=== PATIENT | female | born 1960 | race Caucasian/White ===

== ENCOUNTER 2017-07-01 12:38 | Observation (INO) | payer OTHER ==
[~2017-07-01] VITALS: Ht 157.5 cm; Wt 74.0 kg
[2017-07-01 13:18] VITALS: BP 157/75; PULSE 60; RESP 17; TEMP 98.7; O2SAT 98
[2017-07-01 14:02] LABS: AUTOMATED NEUTROPHIL # 4.7 TH/MM3 (1.8-7.7); BASOPHIL % 0.3 % (0.0-2.0); EOSINOPHIL # 0.2 TH/MM3 (0-0.4); EOSINOPHIL % 2.2 % (0.0-4.0); HEMATOCRIT 38.1 % (35.0-46.0); HEMO FLAGS DIFF FINAL; LYMPH % 22.7 % (9.0-44.0); LYMPHOCYTE # 1.6 TH/MM3 (1.0-4.8); MEAN CELL VOLUME 88.3 FL (80.0-100.0); MEAN CORPUSCULAR HEMOGLOBIN 29.9 PG (27.0-34.0); MEAN CORPUSCULAR HGB CONC 33.9 % (32.0-36.0); MONO % 7.9 % (0.0-8.0); NEUT % 66.9 % (16.0-70.0); PLATELET COUNT 342 TH/MM3 (150-450); RED BLOOD COUNT 4.31 MIL/MM3 (4.00-5.30); RED CELL DISTRIBUTION WIDTH 13.8 % (11.6-17.2)
[2017-07-01 14:10] LABS: APTT (PATIENT) 27.4 SEC (24.3-30.1); PROTHROMBIN TIME - PATIENT 10.6 SEC (9.8-11.6)
--- NOTE | 2017-07-01 14:18 | RADRPT ---
EXAM DATE/TIME: 07/01/2017 13:59 [facility] COMPARISON: No previous studies available for comparison. INDICATIONS : Mid sternal chest pains ridiating into left arm. MEDICAL HISTORY : None. SURGICAL HISTORY : None. ENCOUNTER: Initial ACUITY: 1 day PAIN SCORE: 7/10 LOCATION: Left chest FINDINGS: A single view of the chest demonstrates the lungs to be symmetrically aerated without evidence of mas s, infiltrate or effusion. The cardiomediastinal contours are unremarkable. Osseous structures are intact. CONCLUSION: 1. No acute cardiopulmonary findings. Je Traylor MD on July 01, 2017 at 14:14 Board Certified Radiologist. This report was verified electronically.
[2017-07-01 14:25] LABS: ANION GAP 6 MEQ/L (5-15); BLOOD UREA NITROGEN 17 MG/DL (7-18); CHLORIDE 105 MEQ/L (98-107); GLOMERULAR FILTRATION RATE 82 ML/MIN (>89); MAGNESIUM 2.3 MG/DL (1.5-2.5); POTASSIUM 3.5 MEQ/L (3.5-5.1); SODIUM (NA) 139 MEQ/L (136-145)
[2017-07-01 14:35] LABS: CREATINE KINASE 73 U/L (26-192)
[2017-07-01] MEDS ORDERED: ACETAMINOPHEN 325 MG TAB PO ONE (14:45)
[2017-07-01] MEDS ORDERED: ATEN100T PO (14:52)
--- NOTE | 2017-07-01 15:05 | PD ---
HPI Chief Complaint: Cardiac Complaint Time Seen by Provider: 13:29 Travel History International Travel<30 days: No Contact w/Intl Traveler<30days: No Traveled to known affect area: No History of Present Illness HPI 57-year-old female that presents to the ED for evaluation of left-sided chest pressure. Per patient she's had this done for what this morning. Per patient she woke up with a headache and noticed that her blood pressure was really high. She took an atenolol to help with the discomfort which did help bring the blood pressure down as well as the headache. Per patient she doesn't actually take the atenolol herself and is from someone else. She has no history of high blood pressure but her blood pressure usually has to be low. She states that she has a strong family history of heart disease. Per patient she called the ambulance because the pain got progressively worse even after taking a second atenolol. She did not take any other pain medication. She was given nitroglycerin as well as aspirin by ambulance. This made the pain and the blood pressure better. Per patient she is for the most problem is chest pain-free. She states that her pain right now is 1 out of 10. She states that the pain stays on the chest on the left side. She denies any history of heart disease on herself. She is any history of cholesterol or diabetes. She has no allergies to medication. No other medical issues at this time. PFSH Past Medical History Hypertension: Yes ?: Not Social History Alcohol Use: No Tobacco Use: No Substance Use: No Allergies-Medications (Allergen,Severity, Reaction): Coded Allergies: No Known Allergies (Unverified , 07/01/17) Reported Meds & Prescriptions Reported Meds & Active Scripts Active Reported Atenolol 100 Mg Tab 100 Mg PO BID Review of Systems Except as stated in HPI: all other systems reviewed are Neg Physical Exam Narrative GENERAL: SKIN: Warm and dry. HEAD: Atraumatic. Normocephalic. EYES: Pupils equal and round. No scleral icterus. No injection or drainage. ENT: No nasal bleeding or discharge. Mucous membranes pink and moist. Tongue is midline. No uvula deviation. NECK: Trachea midline. No JVD. CARDIOVASCULAR: Regular rate and rhythm. No murmurs, S3, S4. No reproducible chest pain on the chest. RESPIRATORY: No accessory muscle use. Clear to auscultation. Breath sounds equal bilaterally. GASTROINTESTINAL: Abdomen soft, non-tender, nondistended. Hepatic and splenic margins not palpable. MUSCULOSKELETAL: Extremities without clubbing, cyanosis, or edema. No obvious deformities. Full range of motion of the upper and lower extremities bilaterally. 2+ pulses bilaterally. NEUROLOGICAL: Awake and alert. No obvious cranial nerve deficits. Motor grossly within normal limits. Five out of 5 muscle strength in the arms and legs. Normal speech. PSYCHIATRIC: Appropriate mood and affect; insight and judgment normal. Data Data Last Documented VS Vital Signs Date Time Temp Pulse Resp B/P (MAP) Pulse Ox O2 Delivery O2 Flow Rate FiO2 07/01/17 13:42 59 07/01/17 13:41 99 Room Air 07/01/17 13:18 98.7 17 157/75 (102) Orders Orders Electrocardiogram (07/01/17 13:18) Basic Metabolic Panel (Bmp) (07/01/17 13:18) Ckmb (Isoenzyme) Profile (07/01/17 13:18) Complete Blood Count With Diff (07/01/17 13:18) Magnesium (Mg) (07/01/17 13:18) Prothrombin Time / Inr (Pt) (07/01/17 13:18) Act Partial Throm Time (Ptt) (07/01/17 13:18) Troponin I (07/01/17 13:18) Lipase (07/01/17 13:18) Chest, Single Ap (07/01/17 13:18) Ecg Monitoring (07/01/17 13:18) Bilateral Bp Monitoring (07/01/17 13:18) Iv Access Insert/Monitor (07/01/17 13:18) Oximetry (07/01/17 13:18) Oxygen Administration (07/01/17 13:18) Acetaminophen (Tylenol) (07/01/17 14:45) Admit Order (Ed Use Only) (07/01/17 14:45) Labs Laboratory Tests Test 07/01/17 13:40 White Blood Count 7.0 TH/MM3 Red Blood Count 4.31 MIL/MM3 Hemoglobin 12.9 GM/DL Hematocrit 38.1 % Mean Corpuscular Volume 88.3 FL Mean Corpuscular Hemoglobin 29.9 PG Mean Corpuscular Hemoglobin Concent 33.9 % Red Cell Distribution Width 13.8 % Platelet Count 342 TH/MM3 Mean Platelet Volume 7.0 FL Neutrophils (%) (Auto) 66.9 % Lymphocytes (%) (Auto) 22.7 % Monocytes (%) (Auto) 7.9 % Eosinophils (%) (Auto) 2.2 % Basophils (%) (Auto) 0.3 % Neutrophils # (Auto) 4.7 TH/MM3 Lymphocytes # (Auto) 1.6 TH/MM3 Monocytes # (Auto) 0.6 TH/MM3 Eosinophils # (Auto) 0.2 TH/MM3 Basophils # (Auto) 0.0 TH/MM3 CBC Comment DIFF FINAL Differential Comment Prothrombin Time 10.6 SEC Prothromb Time International Ratio 1.0 RATIO Activated Partial Thromboplast Time 27.4 SEC Blood Urea Nitrogen 17 MG/DL Creatinine 0.73 MG/DL Random Glucose 81 MG/DL Calcium Level 9.1 MG/DL Magnesium Level 2.3 MG/DL Sodium Level 139 MEQ/L Potassium Level 3.5 MEQ/L Chloride Level 105 MEQ/L Carbon Dioxide Level 28.0 MEQ/L Anion Gap 6 MEQ/L Estimat Glomerular Filtration Rate 82 ML/MIN Total Creatine Kinase 73 U/L Troponin I LESS THAN 0.02 NG/ML Lipase 183 U/L MDM Medical Decision Making Medical Screen Exam Complete: Yes Emergency Medical Condition: Yes Medical Record Reviewed: Yes Interpretation(s) EKG shows sinus rhythm with no sign of acute ischemia or arrhythmia. Read by me and attending. CK-MB and troponin negative for acute disease. Last Impressions Chest X-Ray 07/01/17 1318 Signed Impressions: Service Date/Time: Saturday, July 01, 2017 13:59 - CONCLUSION: 1. No acute cardiopulmonary findings. Je Traylor MD CBC & BMP Diagram 07/01/17 13:40 Calcium Level 9.1, Magnesium Level 2.3 Differential Diagnosis Chest pain versus atypical chest pain versus ACS versus anxiety Narrative Course 57-year-old female that presents to the ED for evaluation of chest pain. Patient was properly examined and was found to have signs and symptoms consistent with appears to be chest pain. Concern for ACS. Patient has risk factors including high blood pressure, family history and age. Labs and imaging were done and were essentially unremarkable of this time. Reassuring but I do recommend admission to chest pain center as patient herself has never had a stress test and there is definite concern for ACS. She is in agreement with this plan. Patient was admitted to the chest pain center. Diagnosis Primary Impression: Chest pain in adult Admitting Information Admitting Physician Requests: Observation Albino Valentine Jul 01, 2017 15:05
[2017-07-01] MEDS ORDERED: ALPRAZolam 0.25 MG TAB PO PRN (16:45)
[2017-07-01] MEDS ORDERED: ONDANSETRON HCL 4 MG/2 ML VIAL IV PRN (16:45)
[2017-07-01] MEDS ORDERED: ACETAMINOPHEN 500 MG CPLT PO PRN (16:45)
[2017-07-01] MEDS ORDERED: SODIUM CHLORIDE 0.9% FLUSH 10 ML FLUSH IV FLUSH PRN (16:45)
[2017-07-01] MEDS ORDERED: ACETAMINOPHEN/HYDROcodone 325 MG/7.5 MG TAB PO PRN (16:45)
[2017-07-01 16:46] VITALS: BP 125/90; PULSE 61; RESP 18; TEMP 98.3; O2SAT 100
--- NOTE | 2017-07-01 16:50 | HHI.HP ---
HPI Primary Care Physician Non-Staff Chief Complaint Chest pain History of Present Illness This is a 57-year-old [place]ian-speaking female that presents to ED via private vehicle with her son with a complaint of left upper chest pressure that began last evening as well as having a headache. She has requested that her son did the translating for her. The discomfort persisted throughout the evening and into today. Discomfort still there but worsened with any type of movement of the left arm. She felt nauseous. No shortness of breath or diaphoresis. She checked her blood pressure when the symptoms began last evening and her blood pressure was 160/108. She states she has a prescription for atenolol that was prescribed to her for hypertension and arrhythmias. States that her heart rate is fast at times. However patient states she'll take the medication when she thinks it as needed. Admits to not checking her blood pressure on a regular basis nor taken the medication regular basis. About 10:30 this morning the chest pressure still present so she checked her blood pressure again and it was 161/107. She took another atenolol and her son brought her to the ED. Denies recent illness. Denies fevers or chills. Review of Systems General: Patient denies fevers, chills recent, and recent travel HEENT: Plain the frontal headache that has resolved. Patient denies sore throat , difficulty swallowing. Cardiovascular: Has the chest discomfort as mentioned above. Denies sensation of heart beating rapidly or irregularly. No syncope. Denies diaphoresis. Respiratory: Denies shortness of breath or inspirational chest discomfort. Denies coughing wheezing or hemoptysis. GI: She felt nauseous. Patient denies vomiting, diarrhea, abdominal pain, bloody stools. Musculoskeletal: Patient denies joint pain or edema. Denies calf pain or edema. Neurovascular: Patient denies numbness, tingling, weakness in extremities. Complains of frontal headache that is resolved. Endocrine: Denies polyuria and polydipsia. Hematologic: Denies easy bruising. Skin: Denies rash or itching. Past Family Social History Allergies: Coded Allergies: No Known Allergies (Unverified , 07/01/17) Past Medical History Hypertension and some type of arrhythmia that they describe is tachycardic. Denies hyperlipidemia diabetes or CAD. Past Surgical History Noncontributory. Reported Medications Reported Meds & Active Scripts Active Reported Atenolol 100 Mg Tab 100 Mg PO BID Active Ordered Medications Current Medications Medications (Trade) Dose Ordered Sig/Lucy Route Start Time Stop Time Status Last Admin (NS Flush) 2 ml UNSCH PRN IVF 07/01/17 16:45 UNV (NS Flush) 2 ml BID IVF 07/01/17 21:00 UNV (Tylenol) 500 mg Q4H PRN PO 07/01/17 16:45 UNV ([place] 7.5-325 Mg) 1 tab Q4H PRN PO 07/01/17 16:45 UNV (Zofran Inj) 4 mg Q6H PRN IV 07/01/17 16:45 UNV (Protonix) 40 mg DAILY PO 07/01/17 16:45 UNV (Aspirin) 325 mg DAILY PO 07/02/17 09:00 UNV (Xanax) 0.25 mg Q8H PRN PO 07/01/17 16:45 UNV Family History States her mother at age 77 of a myocardial infarction. Not aware of cardiac issues prior to her passing. Social History Lifetime nonsmoker. Denies alcohol or illicit drugs. She is . Physical Exam Vital Signs Vital Signs Date Time Temp Pulse Resp B/P (MAP) Pulse Ox O2 Delivery O2 Flow Rate FiO2 07/01/17 15:58 18 07/01/17 13:42 59 07/01/17 13:41 99 Room Air 07/01/17 13:18 98.7 60 17 157/75 (102) 98 Physical Exam GENERAL: This is a well-nourished, well-developed patient, in no apparent distress. Patient speaks in clear complete sentences. Patient is pleasant. HEENT: Head is atraumatic and normocephalic. Neck is supple without lymphadenopathy and trachea is midline. No JVD or carotid bruits. CARDIOVASCULAR: Regular rate and rhythm without murmurs, gallops, or rubs. RESPIRATORY: Clear to auscultation. Breath sounds equal bilaterally. No wheezes , rales, or rhonchi. Left upper chest wall is tender. This also is worsened with movement of the arm across her chest. No use of accessory muscles. GASTROINTESTINAL: Abdomen is nontender, nondistended. Abdomen soft. No obvious pulsatile mass or bruit. No CVA tenderness. Strong femoral pulses bilaterally. Normal bowel sounds in all quadrants. MUSCULOSKELETAL: Patient is moving upper and lower extremities freely however discomfort is worsened when moving the arm across the chest. No calf tenderness or edema, no Homans sign. Strong pulses in upper and lower extremities. NEUROLOGICAL: Patient is alert and oriented. Cranial nerves 2-12 are grossly intact. No focal deficits and speech is clear. SKIN: No rash and turgor is normal. Laboratory Laboratory Tests Test 07/01/17 13:40 White Blood Count 7.0 Red Blood Count 4.31 Hemoglobin 12.9 Hematocrit 38.1 Mean Corpuscular Volume 88.3 Mean Corpuscular Hemoglobin 29.9 Mean Corpuscular Hemoglobin Concent 33.9 Red Cell Distribution Width 13.8 Platelet Count 342 Mean Platelet Volume 7.0 Neutrophils (%) (Auto) 66.9 Lymphocytes (%) (Auto) 22.7 Monocytes (%) (Auto) 7.9 Eosinophils (%) (Auto) 2.2 Basophils (%) (Auto) 0.3 Neutrophils # (Auto) 4.7 Lymphocytes # (Auto) 1.6 Monocytes # (Auto) 0.6 Eosinophils # (Auto) 0.2 Basophils # (Auto) 0.0 CBC Comment DIFF FINAL Differential Comment Prothrombin Time 10.6 Prothromb Time International Ratio 1.0 Activated Partial Thromboplast Time 27.4 Blood Urea Nitrogen 17 Creatinine 0.73 Random Glucose 81 Calcium Level 9.1 Magnesium Level 2.3 Sodium Level 139 Potassium Level 3.5 Chloride Level 105 Carbon Dioxide Level 28.0 Anion Gap 6 Estimat Glomerular Filtration Rate 82 Total Creatine Kinase 73 Troponin I LESS THAN 0.02 Lipase 183 Result Diagram: 07/01/17 1340 07/01/17 1340 Imaging Last 48 hours Impressions Chest X-Ray 07/01/17 1318 Signed Impressions: Service Date/Time: Saturday, July 01, 2017 13:59 - CONCLUSION: 1. No acute cardiopulmonary findings. Je Traylor MD Course Initial EKG is sinus rhythm without significant ST segment depressions or elevations. Caprini VTE Risk Assessment Caprini VTE Risk Assessment: No/Low Risk (score <= 1) Caprini Risk Assessment Model Point Value = 1 Point Value = 2 Point Value = 3 Point Value = 5 Age 41-60 Minor surgery BMI > 25 kg/m2 Swollen legs Varicose veins or History of unexplained or recurrent spontaneous Oral contraceptives or hormone replacement Sepsis (< 1 month) Serious lung disease, including pneumonia (< 1 month) Abnormal pulmonary function Acute myocardial infarction Congestive heart failure (< 1 month) History of inflammatory bowel disease Medical patient at bed rest Age 61-74 Arthroscopic surgery Major open surgery (> 45 min) Laparoscopic surgery (> 45 min) Malignancy Confined to bed (> 72 hours) Immobilizing plaster cast Central venous access Age >= 75 History of VTE Family history of VTE Factor V Leiden Prothrombin [id number] Lupus anticoagulant Anticardiolipin antibodies Elevated serum homocysteine Heparin-induced thrombocytopenia Other congenital or acquired thrombophilia Stroke (< 1 month) Elective arthroplasty Hip, pelvis, or leg fracture Acute spinal cord injury (< 1 month) Prophylaxis Regimen Total Risk Factor Score Risk Level Prophylaxis Regimen 0-1 Low Early ambulation 2 Moderate Order ONE of the following: *Sequential Compression Device (SCD) *Heparin 5000 units SQ BID 3-4 Higher Order ONE of the following medications: *Heparin 5000 units SQ TID *Enoxaparin/Lovenox 40 mg SQ daily (WT < 150 kg, CrCl > 30 mL/min) *Enoxaparin/Lovenox 30 mg SQ daily (WT < 150 kg, CrCl > 10-29 mL/min) *Enoxaparin/Lovenox 30 mg SQ BID (WT < 150 kg, CrCl > 30 mL/min) AND/OR *Sequential Compression Device (SCD) 5 or more Highest Order ONE of the following medications: *Heparin 5000 units SQ TID (Preferred with Epidurals) *Enoxaparin/Lovenox 40 mg SQ daily (WT < 150 kg, CrCl > 30 mL/min) *Enoxaparin/Lovenox 30 mg SQ daily (WT < 150 kg, CrCl > 10-29 mL/min) *Enoxaparin/Lovenox 30 mg SQ BID (WT < 150 kg, CrCl > 30 mL/min) AND *Sequential Compression Device (SCD) Assessment and Plan Assessment and Plan * Chest pain: Patient will continue to have serial cardiac enzymes and EKGs for ruling out purposes. She was seen by Dr. Ricardo Grullon of cardiology and the chest pain center and will have a Lexiscan and if she rules out in the morning. * Hypertension: Continue her medication. Patient is stable at this time. She is agreeable to this plan. Armando Godfrey Jul 01, 2017 16:50
[2017-07-01] MEDS ORDERED: KETOROLAC TROMETHAMINE 30 MG/ML (IVP) VIAL IVP ONE (17:00)
[2017-07-01 17:24] LABS: CREATINE KINASE 64 U/L (26-192)
[2017-07-01] MEDS: PANTOPRAZOLE SOD 40 MG DELAYED RELEASE TAB PO SCH (17:52)
[2017-07-01 19:46] VITALS: BP 120/77; PULSE 67; RESP 20; RESP 48; TEMP 98.9; O2SAT 97
[2017-07-01] MEDS: SODIUM CHLORIDE 0.9% FLUSH 10 ML FLUSH IV FLUSH SCH (20:17)
[2017-07-01 20:25] VITALS: PULSE 65
[2017-07-01] MEDS: ATENOLOL 100 MG TAB PO SCH (20:28)
[2017-07-01 21:05] LABS: CREATINE KINASE 64 U/L (26-192)
[2017-07-01 23:28] VITALS: BP 122/77; PULSE 68; RESP 18; TEMP 98.6; O2SAT 97
[2017-07-02 03:49] VITALS: BP 125/69; PULSE 68; RESP 18; TEMP 98.2; O2SAT 98
[2017-07-02 08:00] VITALS: PULSE 54
[2017-07-02 08:18] VITALS: BP 134/77; PULSE 61; RESP 16; TEMP 97.8; O2SAT 99
[2017-07-02] MEDS ORDERED: ASPIRIN 325 MG TAB PO SCH (09:00)
[2017-07-02] MEDS ORDERED: REGADENOSON INJ 0.4 MG/5 ML SYR ONE (09:33)
--- NOTE | 2017-07-02 10:35 | EKG ---
Date Performed: 07/01/2017 Time Performed: 20:41:59 PTAGE: 57 years EKG: Sinus rhythm NORMAL ECG PREVIOUS TRACING : 07/01/2017 16.58 DOCTOR: Luis Treadwell Interpretating Date/Time 07/02/2017 10:33:45
--- NOTE | 2017-07-02 10:35 | EKG ---
Date Performed: 07/01/2017 Time Performed: 16:58:30 PTAGE: 57 years EKG: SINUS BRADYCARDIA BORDERLINE ECG NO SIG CHANGE PREVIOUS TRACING : 07/01/2017 13.33 DOCTOR: Luis Treadwell Interpretating Date/Time 07/02/2017 10:34:03
--- NOTE | 2017-07-02 10:36 | EKG ---
Date Performed: 07/01/2017 Time Performed: 13:33:31 PTAGE: 57 years EKG: SINUS BRADYCARDIA BORDERLINE ECG NO PREVIOUS TRACING DOCTOR: Luis Treadwell Interpretating Date/Time 07/02/2017 10:34:42
--- NOTE | 2017-07-02 10:40 | TR ---
Date Performed: 07/02/2017 Time Performed: 09:37:34 DOCTOR: Luis Treadwell DRUG LIST: CLINICAL HISTORY: ANGINA REASON FOR TEST: REASON FOR ENDING: OBSERVATION: CONCLUSION: Lexiscan stress test was performed under standard four minute protocol. Radionuclide was injected one minute prior to ending the test. No electrocardiographic abormalities were present to suggest ischemia. Nuclear imaging and interpretation are pending. COMMENTS: Low probability of ischemic disease
[2017-07-02] MEDS: PANTOPRAZOLE SOD 40 MG DELAYED RELEASE TAB PO SCH (10:41)
[2017-07-02] MEDS: SODIUM CHLORIDE 0.9% FLUSH 10 ML FLUSH IV FLUSH SCH (10:41)
[2017-07-02] MEDS: ATENOLOL 100 MG TAB PO SCH (10:41)
--- NOTE | 2017-07-02 11:11 | RADRPT ---
EXAM DATE/TIME: 07/02/2017 08:56 [facility] COMPARISON: No previous studies available for comparison. INDICATIONS : Left upper chest pain. Angina. DOSE: 25.5 mCi Tc99m Myoview at stress. 8.4 mCi Tc99m Myoview at rest. 0.4 mg Lexiscan STRESS SYMPTOMS: Stomach pain and nausea. EJECTION FRACTION: 56% MEDICAL HISTORY : Hypertension. SURGICAL HISTORY : None. ENCOUNTER: Initial ACUITY: 1 day PAIN SCALE: 3/10 LOCATION: Left chest TECHNIQUE: The patient underwent pharmacologic stress with infusion of prescribed dose. Continuous ECG tracing was monitored during stress. Gated SPECT imaging was performed after stress and conventional SPECT i maging was performed at rest. The examination was performed on a SPECT/CT scanner, both attenuation and non-corrected datasets were reviewed. FINDINGS: DISTRIBUTION: The maximum perfused segment at stress is in the anterior wall. PERFUSION STUDY: The pattern of perfusion at stress is within normal limits. GATED STUDY: There is intact wall motion and thickening without hypokinetic or dyskinetic segments. CONCLUSION: 1. No significant reversibility to suggest ischemia. 2. Normal wall motion with ejection fraction 56%. RISK CATEGORY: Low (<1% Annual Mortality Rate) Navjot Barbosa MD on July 02, 2017 at 11:08 Board Certified Radiologist. This report was verified electronically.
--- NOTE | 2017-07-02 11:27 | HHI.DCPOC ---
Discharge Care Plan Diagnosis: (1) Chest pain Goals to Promote Your Health * To prevent worsening of your condition and complications * To maintain your health at the optimal level Directions to Meet Your Goals Take your medications as prescribed Follow your dietary instruction Follow activity as directed Keep your appointments as scheduled Take your immunizations and boosters as scheduled If your symptoms worsen call your PCP, if no PCP go to Urgent Care Center or Emergency Room Smoking is Dangerous to Your Health. Avoid second hand smoke Call the 24-hour hour crisis hotline for domestic abuse at Armando Godfrey Jul 02, 2017 11:27
== END 2017-07-02 12:51 | disposition home or self-care (01) ==
LOC: NEPC 12:38 → NEDA 14:46 → NEPGCP 16:33
PROVIDERS: ADMIT Internal Medicine Cardiovascular Disease; ATTEND Internal Medicine Cardiovascular Disease
DX: R07.89 Other chest pain (principal); I10 Essential (primary) hypertension; I49.9 Cardiac arrhythmia, unspecified; R51 Headache; R11.0 Nausea; Z82.49 Family history of ischemic heart disease and other diseases of the circulatory system
CPT/HCPCS: 71010; 78452; 80048; 82550; 83690; 83735; 84484; 85025; 85610; 85730; 93005; 93017; 96374; 96375; 96376; 99285; A9502; G0378; J1885; J2405; J2785